=== PATIENT | female | born 1990 | race Caucasian/White ===

== ENCOUNTER 2018-03-24 09:17 | Emergency (ER) | payer MEDICAID, OTHER ==
[~2018-03-24] VITALS: Ht 170.2 cm; Wt 77.0 kg
[2018-03-24 09:40] VITALS: BP 113/75
[2018-03-24] MEDS ORDERED: DEXAMETHASONE 4 MG TABLET PO ONE (10:30)
[2018-03-24] MEDS ORDERED: DEXAMETHASONE 4 MG TABLET ONE (10:36)
[2018-03-24 11:08] LABS: RAPID INFLUENZA A Negative (Negative); RAPID INFLUENZA B Negative (Negative)
== END 2018-03-24 11:34 | disposition home or self-care (01) ==
LOC: ED 11:20
DX: B34.9 Viral infection, unspecified (principal)
CPT/HCPCS: 71046; 87081; 87400; 87880; 99284